=== PATIENT | female | born 1985 | race Caucasian/White ===

== ENCOUNTER 2016-08-09 11:37 | Emergency (ER) | payer OTHER ==
[~2016-08-09] VITALS: Ht 154.9 cm; Wt 78.9 kg
[~2016-08-09 11:37] MED LIST: ADIPEX-P37.5 MG PO; AMOXIL250 MG/5 M PO; BACTRIM DS 8001 TA1 PO; BIRTH CONTROL1 EACH PO; CATAFLAM50 MG PO; CIPRO500 MG PO; CLEOCIN HCL150 MG PO; DOXYCYCLINE MO100 MG PO; GLUCOPHAGE1000 MG PO; HYDROCODONE BIT1 T11 PO; METFORMIN500 MG PO; Motrin,Rufen800 MG PO; NKHM; PERCOCET 325 MG1 TA2 PO; ROBITUSSIN AC 10 MG/ PO; TRAMADOL HCL50 MG PO; TYLENOL W/CODE480 ML PO; VIBRAMYCIN100 MG PO; ZOFRAN ODT4 MG SL; ZYRTEC10 MG PO
[2016-08-09 12:35] LABS: BASO % 0.4 % (0.0-1.0); EOS # 0.2 10*3/uL (0.0-0.4); EOS % 2.3 % (1.0-4.0); HEMATOCRIT 39.5 % (37.0-47.0); HEMOGLOBIN 12.9 g/dl (12.0-16.0); LYMPH # 1.9 10*3/uL (1.3-4.4); LYMPH % 26.8 % (27.0-41.0); MEAN CORPUSCULAR HGB 28.7 pg (27.0-31.0); MEAN CORPUSCULAR HGB CONC 32.7 g/dl (33.0-37.0); MEAN PLATELET VOLUME 10.8 fl (9.6-12.3); MONO # 0.4 10*3/uL (0.1-1.0); MONO % 5.6 % (3.0-9.0); NEUT # 4.5 10*3/uL (2.3-7.9); NEUT % 64.5 % (47.0-73.0); PLATELET COUNT AUTOMATED 226 10*3/uL (130-400); RED BLOOD COUNT 4.49 10*6/uL (4.10-5.10); RED CELL DISTRI WIDTH 13.2 % (0-14.5)
[2016-08-09 12:50] LABS: ALBUMIN 3.6 gm/dl (3.1-4.5); ALKALINE PHOSPHATASE 67 U/L (45-117); BILIRUBIN, TOTAL 0.4 mg/dl (0.2-1.0); BUN 14 mg/dl (7-24); CARBON DIOXIDE 28 mmol/L (21-32); CHLORIDE 107 mmol/L (98-107); EST GLOM FILT AFRICAN AMERICAN > 60 ml/min; GLUCOSE 113 mg/dL (65-99); SGOT/AST 12 IU/L (3-35); SGPT/ALT 21 U/L (12-78); SODIUM 142 mmol/L (136-145)
[2016-08-09 13:03] LABS: BILIRUBIN NEGATIVE (NEGATIVE); BLOOD NEGATIVE (NEGATIVE); CLARITY SL CLOUDY (CLEAR); COLOR YELLOW (YELLOW); GLUCOSE NEGATIVE (NEGATIVE); KETONE NEGATIVE (NEGATIVE); LEUKO ESTERASE NEGATIVE (NEGATIVE); NITRITE NEGATIVE (NEGATIVE); PH 5.5 (5.0-9.0); PROTEIN NEGATIVE (NEGATIVE); SPECIFIC GRAVITY <= 1.005 (1.005-1.030); UROBILINOGEN 0.2 E.U./dl (0.2-1.0)
[2016-08-09 13:19] LABS: WBC 0-2 wbc/hpf (0-5)
[2016-08-09 13:20] LABS: BACTERIA TRACE; URINE REFLEX COMMENT NO (NO)
== END 2016-08-09 14:56 | disposition home or self-care (01) ==
LOC: ED 11:37
PROVIDERS: Emergency Medicine
DX: R10.9 Unspecified abdominal pain (principal); Z88.1 Allergy status to other antibiotic agents; Z90.49 Acquired absence of other specified parts of digestive tract

== ENCOUNTER → 2017-01-12 | Outpatient (CLI) | payer OTHER | END | disposition home or self-care (01) | LOC: CT 09:00 | DX: G89.29 Other chronic pain (principal); R10.2 Pelvic and perineal pain; R10.31 Right lower quadrant pain; R11.0 Nausea ==

== ENCOUNTER → 2017-08-13 | Outpatient (CLI) | payer OTHER ==
[2017-08-13 09:15] LABS: HEMATOCRIT 39.5 % (37.0-47.0); HEMOGLOBIN 13.2 g/dl (12.0-16.0); MEAN CELL VOLUME 84.9 fl (81.0-99.0); MEAN CORPUSCULAR HGB 28.4 pg (27.0-31.0); MEAN CORPUSCULAR HGB CONC 33.4 g/dl (33.0-37.0); MEAN PLATELET VOLUME 11.5 fl (9.6-12.3); RED BLOOD COUNT 4.65 10*6/uL (4.10-5.10); RED CELL DISTRI WIDTH 13.3 % (0-14.5); WHITE BLOOD COUNT 5.9 10*3/uL (4.8-10.8)
[2017-08-13 09:38] LABS: ALBUMIN 3.9 gm/dl (3.1-4.5); ALKALINE PHOSPHATASE 84 U/L (45-117); BUN 16 mg/dl (7-24); CHLORIDE 105 mmol/L (98-107); CHOLESTEROL 209 mg/dL (<200); FREE T4 0.92 ng/dl (0.76-1.46); HDL CHOLESTEROL 53 mg/dl (40-60); LDL CHOLESTEROL 127 mg/dL (9-159); POTASSIUM 3.9 mmol/L (3.5-5.1); SGOT/AST 16 IU/L (3-35); SGPT/ALT 26 U/L (12-78); SODIUM 140 mmol/L (136-145); TOTAL PROTEIN 7.8 gm/dL (6.4-8.2); TRIGLYCERIDES 147 mg/dl (<150); VLDL CHOLESTEROL 29 mg/dL (6-40)
[2017-08-13 09:42] LABS: THYROID STIM HORMONE (HS) 0.792 uIU/ml (0.358-4.75)
[2017-08-14 19:05] LABS: TESTOSTERONE FREE, (DIRECT) 1.3 pg/mL (0.0-4.2)
== END | disposition home or self-care (01) ==
LOC: LAB 08:24
PROVIDERS: Family Medicine
DX: R53.83 Other fatigue (principal); R63.5 Abnormal weight gain; R60.9 Edema, unspecified

== ENCOUNTER → 2018-02-18 | Outpatient (CLI) | payer OTHER ==
[2018-02-18 10:04] LABS: HEMATOCRIT 39.3 % (37.0-47.0); HEMOGLOBIN 12.5 g/dl (12.0-16.0); MEAN CELL VOLUME 87.3 fl (81.0-99.0); MEAN CORPUSCULAR HGB 27.8 pg (27.0-31.0); MEAN CORPUSCULAR HGB CONC 31.8 g/dl (33.0-37.0); MEAN PLATELET VOLUME 10.9 fl (9.6-12.3); RED BLOOD COUNT 4.5 10*6/uL (4.10-5.10); RED CELL DISTRI WIDTH 13.3 % (0-14.5); WHITE BLOOD COUNT 5.3 10*3/uL (4.8-10.8)
[2018-02-18 10:28] LABS: ALBUMIN 3.9 gm/dl (3.1-4.5); ALKALINE PHOSPHATASE 82 U/L (45-117); BUN 14 mg/dl (7-24); CHLORIDE 108 mmol/L (98-107); CPK 80 U/L (26-192); CREATININE 0.77 mg/dL (0.55-1.02); POTASSIUM 4.2 mmol/L (3.5-5.1); SGOT/AST 14 IU/L (3-35); SGPT/ALT 25 U/L (12-78); SODIUM 142 mmol/L (136-145); TOTAL PROTEIN 7.4 gm/dL (6.4-8.2)
[2018-02-18 10:35] LABS: THYROID STIM HORMONE (HS) 0.745 uIU/ml (0.358-4.75)
[2018-02-19 08:56] LABS: HEPATITIS B SURFACE AG Negative (Negative); HEPATITIS C VIRUS ANTIBODY <0.1 s/co (0.0-0.9)
[2018-02-19 09:06] LABS: RHEUMATOID ARTHRITIS FACTOR <10.0 IU/mL (0.0-13.9)
== END | disposition home or self-care (01) ==
LOC: LAB 09:44
PROVIDERS: Family Medicine
DX: M79.1 Myalgia (principal); R53.83 Other fatigue; R21 Rash and other nonspecific skin eruption; F41.1 Generalized anxiety disorder; E74.00 Glycogen storage disease, unspecified; M25.50 Pain in unspecified joint

== ENCOUNTER → 2019-10-14 | Outpatient (CLI) | payer OTHER | END | disposition home or self-care (01) | LOC: RAD 18:01 | DX: S61.051A Open bite of right thumb without damage to nail, initial encounter (principal); S51.852A Open bite of left forearm, initial encounter; W54.0XXA Bitten by dog, initial encounter; Y93.89 Activity, other specified; Y92.89 Other specified places as the place of occurrence of the external cause; Y99.8 Other external cause status ==

== ENCOUNTER → 2021-03-14 | Outpatient (CLI) | payer OTHER ==
[2021-03-14 10:21] LABS: HEMATOCRIT 40.3 % (37.0-47.0); MEAN CELL VOLUME 86.7 fl (81.0-99.0); MEAN CORPUSCULAR HGB 27.3 pg (27.0-31.0); MEAN CORPUSCULAR HGB CONC 31.5 g/dl (33.0-37.0); MEAN PLATELET VOLUME 11.6 fl (9.6-12.3); RED BLOOD COUNT 4.65 10*6/uL (4.10-5.10); RED CELL DISTRI WIDTH 15.1 % (0-14.5)
[2021-03-14 10:36] LABS: ALBUMIN 3.8 gm/dl (3.1-4.5); ALKALINE PHOSPHATASE 78 U/L (45-117); BUN 12 mg/dl (7-24); CHLORIDE 109 mmol/L (98-107); CREATININE 0.69 mg/dL (0.55-1.02); POTASSIUM 4.6 mmol/L (3.5-5.1); SGOT/AST 13 IU/L (3-35); SGPT/ALT 25 U/L (12-78); SODIUM 140 mmol/L (136-145); TOTAL PROTEIN 7.4 gm/dL (6.4-8.2)
== END | disposition home or self-care (01) ==
LOC: LAB 09:59
PROVIDERS: ATTEND Family Medicine
DX: J01.90 Acute sinusitis, unspecified (principal); R05 Cough; R53.83 Other fatigue

== ENCOUNTER → 2025-04-13 | Outpatient (CLI) | payer OTHER | END | disposition home or self-care (01) | LOC: RAD 12:13 | PROVIDERS: ATTEND Nurse Practitioner Family | DX: S39.92XA Unspecified injury of lower back, initial encounter (principal); M54.6 Pain in thoracic spine; M62.830 Muscle spasm of back; X58.XXXA Exposure to other specified factors, initial encounter; Y93.89 Activity, other specified; Y92.89 Other specified places as the place of occurrence of the external cause; Y99.8 Other external cause status ==